=== PATIENT | male | born 1960 | race Caucasian/White ===

== ENCOUNTER → 2025-08-17 | Outpatient (CLI) | payer BC, SELFPAY ==
[2025-08-17 16:10] LABS: EXAGEN MAILED SPECIMEN
[2025-08-17 16:24] LABS: Creatinine, Urine (random) 214.00 mg/dL (39.00-259.00); Protein, Urine (Random) 25.9 mg/dL (0.0-12.0); Protein:Creat Ratio 121 mg/g CRE (0-200)
[2025-08-17 16:38] LABS: Hematocrit 33.5 % (40-54); Hemoglobin 11.7 g/dL (13.0-16.5); Immature Granulocytes Count 0.020 X10^3/uL (0.0-0.0); Mean Corp Hgb Conc 34.9 g/dL (32-36); Mean Corpuscular Volume 101.5 fL (80-94); NRBC Flagged by Analyzer 0 % (0-5); POSITIVE COUNT YES; Platelet Count 71 K/mm3 (150-450); RBC Distribution Width CV 15.2 % (11.6-14.6); RBC Distribution Width SD 54.4 fl (35.1-43.9); Red Blood Count 3.30 M/mm3 (4.6-6.2); White Blood Count 4.9 K/mm3 (4.4-11.0)
[2025-08-17 18:17] LABS: Differential Indicated SCAN CRITERIA MET
[2025-08-17 18:25] LABS: Differential Comment SCANNED
[2025-08-17 18:43] LABS: AST(SGOT) 17 U/L (<=37); Alanine Aminotransfer ALT/SGPT 9 U/L (<=46); Albumin, Serum 3.9 g/dL (3.4-4.8); Alkaline Phosphatase 42 U/L (40-129); Anion Gap 13 (5-15); BUN 10 mg/dL (4-19); BUN/Creat Ratio 11.6 RATIO (10-20); CRP 19.40 mg/L (0.0-3.0); Calcium,Total 8.9 mg/dL (7.6-11.0); Carbon Dioxide 22.4 mmol/L (21.0-32.0); Chloride 103 mmol/L (98-108); Globulin 2.7 g/dL (2.2-4.2); Glucose 136 mg/dL (70-99); Hepatitis B Surface Antigen Nonreactive (Nonreactive); Hepatitis C Antibody Nonreactive (Nonreactive); Potassium 3.9 mmol/L (3.3-5.1)
[2025-08-18 06:33] LABS: Color, Urine Yellow (Yellow); Glucose, Dipstick Normal (Normal); Ketone-Dipstick 5 mg/dl (Negative); Leukocyte Esterase-Dipstick 25 /ul (Negative); Nitrite-Dipstick Negative (Negative); Occult Blood-Urine 10 /ul (Negative); Protein-Dipstick 15 mg/dl (Negative); Specific Gravity, Urine 1.020 (1.002-1.030); Urine Bilirubin Dipstick Negative (Negative)
[2025-08-20 05:07] LABS: Dilute Russell Viper Venom 46.2 sec (0.0-47.0); Interpretation Comment: (.); PTT-LA 38.5 sec (0.0-43.5)
== END | disposition home or self-care (01) ==
PROVIDERS: Referring Provider Internal Medicine Rheumatology; Visit Provider Internal Medicine Rheumatology
DX: M06.4 Inflammatory polyarthropathy (principal); J44.9 Chronic obstructive pulmonary disease, unspecified; R76.89 Other specified abnormal immunological findings in serum; I73.9 Peripheral vascular disease, unspecified; N52.9 Male erectile dysfunction, unspecified; E78.5 Hyperlipidemia, unspecified; N40.0 Benign prostatic hyperplasia without lower urinary tract symptoms; N20.0 Calculus of kidney; R16.1 Splenomegaly, not elsewhere classified; Z79.899 Other long term (current) drug therapy; D89.89 Other specified disorders involving the immune mechanism, not elsewhere classified
CPT/HCPCS: 36415; 80053; 81002; 82570; 84156; 85025; 85652; 86140; 86706; 86803; 87340